=== PATIENT | female | born 1985 | race Caucasian/White ===

== ENCOUNTER 2021-11-29 18:41 | Emergency (ER) | payer OTHER ==
[~2021-11-29] VITALS: Ht 172.7 cm; Wt 124.7 kg
== END 2021-11-29 22:28 | disposition left against medical advice (07) ==
LOC: ED 18:41
DX: M54.50 Low back pain, unspecified (principal); Z53.21 Procedure and treatment not carried out due to patient leaving prior to being seen by health care provider